=== PATIENT | male | born 1995 | race Caucasian/White ===

== ENCOUNTER 2021-07-17 21:32 | Emergency (ER) | payer SELFPAY ==
--- NOTE | ~2021-07-17 | XR_ITS ---
XR shoulder RT min 2V DATE: 07/17/2021 21:58 INDICATION: Right shoulder pain TECHNIQUE: 4 views COMPARISON: None FINDINGS: No fracture or dislocation, periosteal reaction or bone destruction or abnormal soft tissue calcification. Normal alignment at the acromioclavicular and glenohumeral joints. IMPRESSION: Negative Reviewed, dictated and finalized at location A. IMPRESSION: Negative
--- NOTE | ~2021-07-17 | XR_ITS ---
XR elbow RT min 3V DATE: 07/17/2021 21:58 INDICATION: Posterior elbow lump and pain for 2 months TECHNIQUE: 4 views COMPARISON: None FINDINGS: Postoperative change including plate and screws along the dorsal aspect of the olecranon pr ocess and proximal ulnar shaft. No fracture or dislocation, periosteal reaction or bone destruction. No other similar bony or soft ti ssue abnormality. IMPRESSION: Postoperative change of proximal ulna Reviewed, dictated and finalized at location A.
[2021-07-17 21:39] VITALS: BP 145/96; PULSE 72; RESP 16; TEMP 36.5; O2SAT 97
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
[2021-07-17 23:48] VITALS: BP 132/86; PULSE 62; RESP 16; O2SAT 96
== END 2021-07-17 23:49 | disposition home or self-care (01) ==
PROVIDERS: Emergency Provider Emergency Medicine
DX: M77.9 Enthesopathy, unspecified (principal); M25.511 Pain in right shoulder; G89.29 Other chronic pain
CPT/HCPCS: 73030; 73080; 99284